=== PATIENT | male | born 1960 | race Two or more races ===

== ENCOUNTER 2020-03-12 12:11 | Inpatient (IN) | payer SELFPAY ==
[~2020-03-12] VITALS: Ht 170.2 cm; Wt 72.6 kg
[2020-03-12 12:50] LABS: Basophils # (auto) 0 10 ^3/uL (0-0.2); Basophils % (auto) 0.5 % (0.0-2.0); Eosinophils # (auto) 0 10 ^3/uL (0-0.8); Eosinophils % (auto) 0.4 % (0.0-7.0); Hematocrit 45.3 % (41.0-53.0); Hemoglobin 15.7 g/dL (13.5-17.5); Lymphocytes # (auto) 0.8 10 ^3/uL (0.4-5.4); Lymphocytes % (auto) 13.6 % (10.0-50.0); Mean Corpuscular Hemoglobin 31.5 pg (28.0-32.0); Mean Corpuscular Hgb Conc. 34.6 g/dL (32.0-36.0); Monocytes # (auto) 0.5 10 ^3/uL (0-1.3); Neutrophils # (auto) 4.7 10 ^3/uL (1.6-8.6); Neutrophils % (auto) 77.5 % (37.0-80.0); Platelet Count (auto) 151 10^3/uL (140-450); Red Blood Cells 4.98 10^6/uL (4.5-5.90); Red Cell Distribution Width 13.8 % (11.8-14.3); White Blood Cell 6.1 10^3/uL (4.4-10.8)
[2020-03-12] MEDS ORDERED: ENOXAPARIN SOD 100 MG/1 ML SYRINGE SC ONE (13:00)
[2020-03-12 13:10] LABS: Albumin 3.7 g/dL (3.4-5.0); Calcium 8.8 mg/dL (8.5-10.1); Potassium 3.9 mmol/L (3.5-5.1)
[2020-03-12 13:13] LABS: BUN/Creatinine Ratio 15.1; Bilirubin, Total 1.6 mg/dL (0.2-1.0); INR 1.11 (0.9-1.15); Partial Thromboplastin Time 27.1 sec (23.64-32.05); Total Protein 7.5 g/dL (6.4-8.2)
[2020-03-12] MEDS ORDERED: MORPHINE SULF INJ 2 MG/ML SYRINGE 1ML IV PRN ×3 (14:30→15:15)
[2020-03-12] MEDS ORDERED: NITROGLYCERIN 0.4 MG SL TAB SL PRN ×2 (14:30→15:15)
[2020-03-12] MEDS: D5W/SOD CHL 0.45% 1,000 ML IV SCH (15:05)
[2020-03-12] MEDS ORDERED: ALUM & MAG HYDROX-SIMETH LIQ(MAALOX) 30 ML PO PRN (15:15)
[2020-03-12] MEDS ORDERED: ONDANSETRON HCL 4 MG/2 ML VIAL IV PRN (15:15)
[2020-03-12] MEDS ORDERED: HYDROcodone-ACET 5/325MG TAB PO PRN (15:15)
[2020-03-12] MEDS ORDERED: LORazepam 0.5 MG TAB PO PRN (15:15)
[2020-03-12] MEDS ORDERED: FAMOTIDINE 20 MG TAB PO ONE (15:15)
[2020-03-12] MEDS ORDERED: DOCUSATE SOD 100 MG CAP PO PRN (15:15)
[2020-03-12 16:11] LABS: Cholesterol 217 mg/dL (< 200); HDL Cholesterol 64 mg/dL (40-59); LDL Cholesterol 145 mg/dL (< 100); Triglycerides 62 mg/dL (< 150)
[2020-03-12 17:00] VITALS: BP 144/90
[2020-03-12 17:30] VITALS: BP 144/90
[2020-03-12 18:08] VITALS: BP 144/90
[2020-03-12 21:03] LABS: Urine WBC None Seen /hpf (0 - 3)
[2020-03-12] MEDS: ENOXAPARIN SOD 80 MG/0.8ML SYRINGE SC SCH (21:04)
[2020-03-12] MEDS: FAMOTIDINE 20 MG TAB PO SCH (21:04)
[2020-03-12 21:20] LABS: Urine Bacteria NONE SEEN /hpf (None Seen); Urine Blood Negative /uL (Negative); Urine Specific Gravity 1.005 (1.001-1.035)
[2020-03-12 21:34] LABS: Amphetamine Screen, Urine NEGATIVE (NEGATIVE); Barbiturate Scree,Urine NEGATIVE (NEGATIVE); Benzodiazephine Screen, Urine NEGATIVE (NEGATIVE); Cannabinoid Screen, Urine NEGATIVE (NEGATIVE); Cocaine Screen, Urine NEGATIVE (NEGATIVE); Opiate Scree,Urine NEGATIVE (NEGATIVE); Phencyclidine Screen, Urine NEGATIVE (NEGATIVE)
[2020-03-12 22:00] VITALS: BP 134/79
[2020-03-13] MEDS: D5W/SOD CHL 0.45% 1,000 ML IV SCH ×2 (01:09→11:55)
[2020-03-13 05:00] VITALS: BP 125/79
[2020-03-13 05:47] VITALS: BP 125/79
[2020-03-13 09:00] VITALS: BP 132/81
[2020-03-13] MEDS: ENOXAPARIN SOD 80 MG/0.8ML SYRINGE SC SCH (09:24)
[2020-03-13] MEDS: FAMOTIDINE 20 MG TAB PO SCH (09:24)
[2020-03-13 13:00] VITALS: BP 148/90
== END 2020-03-13 17:09 | disposition home or self-care (01) | DRG 301 ==
LOC: ER 12:11 → TELE 12:12 → TELE-WESTW 17:31
PROVIDERS: ADMIT Hospitalist; ATTEND Internal Medicine
DX: I82.401 Acute embolism and thrombosis of unspecified deep veins of right lower extremity (principal); I73.9 Peripheral vascular disease, unspecified; R73.03 Prediabetes; Z86.718 Personal history of other venous thrombosis and embolism
CPT/HCPCS: 36415; 80053; 80061; 80307; 81001; 83036; 84484; 85025; 85379; 85610; 85730; 93971; G0378